=== PATIENT | female | born 1935 | race Caucasian/White ===

== ENCOUNTER 2016-12-31 15:59 | Emergency (ER) | payer MEDICARE, OTHER ==
[~2016-12-31] VITALS: Ht 154.9 cm; Wt 53.0 kg
[2016-12-31] MEDS ORDERED: LASIX20 M1 PO (16:44)
[2016-12-31] MEDS ORDERED: CARVEDILOL3.125 M1 PO (16:44)
[2016-12-31] MEDS ORDERED: MOBIC15 M2 PO (16:45)
[2016-12-31] MEDS ORDERED: LOSARTAN POTASS25 M1 PO (16:45)
[2016-12-31] MEDS ORDERED: ZOCOR40 M1 PO (16:45)
[2016-12-31] MEDS ORDERED: VITAMIN B12 PO (16:46)
[2016-12-31] MEDS ORDERED: OMEPRAZOLE20 M4 PO (16:46)
[2016-12-31] MEDS ORDERED: ASPIRIN EC81 MG PO (16:46)
[2016-12-31] MEDS ORDERED: VITAMIN D31000 UNI3 PO (16:47)
[2016-12-31] MEDS ORDERED: AUGMENTIN 875-1 EAC2 PO (17:26)
== END 2016-12-31 17:54 ==
LOC: EDMED 15:59
PROC: 0HQEXZZ Repair Left Lower Arm Skin, External Approach (ICD-10-PCS; principal; 2016-12-31)
DX: S51.852A Open bite of left forearm, initial encounter (principal); I25.10 Atherosclerotic heart disease of native coronary artery without angina pectoris; I25.2 Old myocardial infarction; I10 Essential (primary) hypertension; Z88.6 Allergy status to analgesic agent; Z23 Encounter for immunization; Z79.82 Long term (current) use of aspirin; Z79.899 Other long term (current) drug therapy; W54.0XXA Bitten by dog, initial encounter; Y92.019 Unspecified place in single-family (private) house as the place of occurrence of the external cause